=== PATIENT | female | born 1980 | race Caucasian/White ===

== ENCOUNTER 2018-07-10 18:14 | Inpatient (IN) | payer BC ==
[2018-07-10] MEDS ORDERED: Lactated Ringers 1,000 ML IV ONE (18:39)
[2018-07-10] MEDS ORDERED: Famotidine 20 MG/2 ML SDV IVPUSH ONE (18:39)
[2018-07-10] MEDS ORDERED: Ondansetron 4 MG/2 ML SDV IVPUSH ONE (18:39)
--- NOTE | 2018-07-10 18:39 | EDM.PDOC ---
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 during this hospitalization. - Problem List Review Problem List Initiated/Reviewed/Updated: Yes - My Orders Last 24 Hours: My Active Orders 07/10/18 18:39 Peripheral IV Care [RC] . DIRECTED Abdomen Series w Chest 1V [CR] Stat H PYLORI STOOL ANTIGEN [MREF] Urgent Sodium Chloride 0.9% [Saline Flush] 10 ml FLUSH ASDIRECTED PRN Obtain Past Medical Record [OM.PC] Urgent Peripheral IV Insertion Adult [OM.PC] Stat Resuscitation Status Stat 07/10/18 19:32 Blood Culture x2 Reflex Set [OM.PC] Urgent 07/10/18 19:40 CULTURE BLOOD [BC] Stat 07/10/18 19:47 CULTURE BLOOD [BC] Stat 07/10/18 Breakfast Nothing Per Oral Diet [DIET] - Assessment/Plan Admission H&P: Please use this note as an admission H&P Last 24 Hours: My Active Orders 07/10/18 18:39 Peripheral IV Care [RC] . DIRECTED Abdomen Series w Chest 1V [CR] Stat H PYLORI STOOL ANTIGEN [MREF] Urgent Sodium Chloride 0.9% [Saline Flush] 10 ml FLUSH ASDIRECTED PRN Obtain Past Medical Record [OM.PC] Urgent Peripheral IV Insertion Adult [OM.PC] Stat Resuscitation Status Stat 07/10/18 19:32 Blood Culture x2 Reflex Set [OM.PC] Urgent 07/10/18 19:40 CULTURE BLOOD [BC] Stat 07/10/18 19:47 CULTURE BLOOD [BC] Stat 07/10/18 Breakfast Nothing Per Oral Diet [DIET] Assessment:: As above Plan: As above. Extensive precautions were given to the patient, who is in agreement with the treatment plan. The patient will require about 3-4 days of inpatient/ acute care secondary to multiple health problems as above.
[2018-07-10] MEDS ORDERED: cefTRIAXone 1 GM in Sodium Chloride 0.9% 100 ML IV ONE (18:43)
[2018-07-10] MEDS: Sodium Chloride 0.9% 10 ML Syringe FLUSH PRN ×3 (19:01→23:38)
[2018-07-10 19:27] LABS: CHLORIDE,CL 104 mmol/L (98-107); SODIUM,NA 139 mmol/L (136-145)
[2018-07-10] MEDS ORDERED: Ketorolac 30 MG/ML SDV IVPUSH ONE (20:46)
[2018-07-10] MEDS: Lactated Ringers 1,000 ML IV SCH (21:29)
[2018-07-10] MEDS: HYDROmorphone 1 MG/ML Syringe IVPUSH PRN (22:23)
[2018-07-10] MEDS: Ondansetron 4 MG/2 ML SDV IVPUSH PRN (23:38)
[2018-07-10] MEDS: Temazepam 15 MG Cap PO PRN (23:46)
[2018-07-10] MEDS: Acetaminophen 325 MG Tab PO PRN (23:46)
[2018-07-11] MEDS: traMADol 50 MG Tab PO PRN ×3 (01:53→22:16)
[2018-07-11] MEDS: Sodium Chloride 0.9% 10 ML Syringe FLUSH PRN ×12 (03:27→22:23)
[2018-07-11] MEDS: Ketorolac 15 MG/ML SDV IVPUSH SCH ×4 (03:28→20:09)
[2018-07-11] MEDS: HYDROmorphone 1 MG/ML Syringe IVPUSH PRN ×3 (04:55→17:51)
[2018-07-11] MEDS: cefTRIAXone 1 GM in Sodium Chloride 0.9% 100 ML IV SCH ×2 (07:29→19:21)
[2018-07-11] MEDS: Sodium Chloride 0.9% 10 ML Syringe FLUSH SCH ×2 (07:29→19:27)
[2018-07-11] MEDS: Gabapentin 300 MG Cap PO SCH ×3 (07:35→17:10)
[2018-07-11] MEDS: Lactated Ringers 1,000 ML IV SCH ×2 (08:09→22:15)
[2018-07-11 08:20] LABS: CHLORIDE,CL 105 mmol/L (98-107); SODIUM,NA 140 mmol/L (136-145)
[2018-07-11] MEDS: Ondansetron 4 MG/2 ML SDV IVPUSH PRN ×2 (08:50→14:50)
[2018-07-11] MEDS ORDERED: Iopamidol 612 MG/ML 100 ML Bottle IVPUSH ONE (09:06)
--- NOTE | 2018-07-11 10:19 | PCM.PN ---
- General Info Date of Service: 07/11/18 Admission Dx/Problem (Free Text): Dental abscess Subjective Update: Increased right facial swelling since admission Functional Status: Reports: Pain Controlled, Tolerating Diet, Ambulating, Urinating, New Symptoms (Increased right facial swelling as above). Denies: Incentive Spirometry Pain Score: 5 - Review of Systems General: Reports: Fever (Low-grade fever yesterday evening however afebrile this morning), Chills. Denies: Weakness, Fatigue, Malaise, Night Sweats, Appetite (Adequate) HEENT: Reports: Glasses, Other (Right facial swelling as above). Denies: Ear Pain, Eye Pain, Headaches, Post Nasal Drip, Sinus Congestion, Sore Throat, Rhinitis, Visual Changes Pulmonary: Reports: No Symptoms. Denies: Shortness of Breath, Pleuritic Chest Pain, Cough, Sputum, Hemoptysis, Wheezing Cardiovascular: Reports: No Symptoms. Denies: Chest Pain, Palpitations, Dyspnea on Exertion, Orthopnea, Edema, Lightheadedness Gastrointestinal: Reports: No Symptoms. Denies: Abdominal Pain, Constipation, Decreased Appetite, Diarrhea, Difficulty Swallowing, Flatus, Hematochezia, Melena, Nausea, Vomiting Genitourinary: Reports: No Symptoms. Denies: Dysuria, Frequency, Burning, Pain , Urgency, Incontinence, Hematuria, Retention, Flank Pain Musculoskeletal: Reports: No Symptoms. Denies: Neck Pain, Shoulder Pain, Arm Pain, Back Pain, Leg Pain Skin: Reports: Other (Right facial swelling as above). Denies: Diaphoresis, Bruising, Rash Neurological: Reports: No Symptoms. Denies: Confusion, Dizziness, Headache, Numbness, Paresthesia, Tingling, Weakness, Change in Speech Psychiatric: Reports: No Symptoms. Denies: Confusion, Depression, Anxiety, Agitation, Cravings, Hallucinations - Patient Data Vitals - Most Recent: Last Vital Signs Temp 36.6 C 07/11/18 07:54 Pulse 55 L 07/11/18 07:54 Resp 20 07/11/18 07:54 BP 158/91 H 07/11/18 07:54 Pulse Ox 92 L 07/11/18 07:54 Vital Signs - 24 hr 07/10/18 07/10/18 07/11/18 18:15 18:55 00:00 Temperature [ 37.2 C 37.1 C Temporal] Pulse, 62 70 55 L Peripheral [ Left Pulse Oximetry] Respiratory 20 16 16 Rate Blood Pressure 161/80 H 157/83 H [Left Upper Arm ] Blood Pressure 139/77 [Right Upper Arm] O2 Sat by Pulse 96 97 94 L Oximetry 07/11/18 07/11/18 03:40 07:54 Temperature [ 37.0 C 36.6 C Temporal] Pulse, 52 L 55 L Peripheral [ Left Pulse Oximetry] Respiratory 20 20 Rate Blood Pressure 158/91 H [Left Upper Arm ] Blood Pressure 173/87 H [Right Upper Arm] O2 Sat by Pulse 94 L 92 L Oximetry Weight - Most Recent: 98.112 kg I&O - Last 24 Hours: Intake & Output 07/10/18 07/11/18 07/11/18 22:59 06:59 14:59 Intake Total 1600 1 Output Total 1000 1000 Balance 600 1021 Imaging Impressions - Last 24 Hours: Telephone consultation at 10:04 AM this morning with the radiology department at [facility] with preliminary verbal report of CT scan of the maxillofacial region and soft tissue of the neck both with IV contrast. Soft tissue swelling and inflammation noted in the right facial region, however no direct significant abscess or involvement of the neck region. Note concomitant right-sided sinusitis. Secondary to repaired dental caries some artifact noted with probable dental abscess not visible Lab Results Last 24 Hours: Laboratory Results - last 24 hr 07/10/18 07/10/18 07/10/18 Range/Units 18:55 18:55 18:55 WBC 20.7 H (4.0-10.2) K/uL RBC 4.95 (3.77-5.09) M/uL Hgb 15.0 (11.7-15.5) g/dL Hct 43.6 (34.0-46.0) % MCV 88.1 (84.0-98.0) fL MCH 30.3 (28.2-33.3) pg MCHC 34.4 (31.7-36.0) g/dL RDW 13.7 (11.2-14.1) % Plt Count 328 (150-350) K/uL Neut % (Auto) 79.5 (45.0-80.0) % Lymph % (Auto) 13.2 (10.0-50.0) % [place] % (Auto) 6.6 (2.0-14.0) % Eos % (Auto) 0.5 (0.0-5.0) % Baso % (Auto) 0.2 (0.0-2.0) % Neut # (Auto) 16.47 H (1.40-7.00) K/uL Lymph # (Auto) 2.73 (0.50-3.50) K/uL [place] # (Auto) 1.36 H (0.00-1.00) K/uL Eos # (Auto) 0.10 (0.00-0.50) K/uL Baso # (Auto) 0.04 (0.00-0.20) K/uL PT 10.6 (9.8-11.7) SEC INR 1.0 APTT 30.3 H (22.1-29.8) SEC Sodium (136-145) mmol/L Potassium (3.5-5.1) mmol/L Chloride (98-107) mmol/L Carbon Dioxide (21.0-32.0) mmol/L BUN (7-18) mg/dL Creatinine (0.51-1.17) mg/dL Est Cr Clr Drug Dosing mL/min Estimated GFR (MDRD) mL/min Glucose (74-106) mg/dL Lactic Acid (0.4-2.0) mmol/L Uric Acid (2.6-7.2) mg/dL Calcium (8.5-10.1) mg/dL Magnesium (1.8-2.4) mg/dL Total Bilirubin (0.2-1.0) mg/dL AST (15-37) U/L ALT (12-78) U/L Alkaline Phosphatase (46-116) IU/L Total Protein (6.4-8.2) g/dL Albumin (3.4-5.0) g/dL Amylase 44 (25-115) U/L Lipase (73-393) U/L TSH, Ultra Sensitive (0.358-3.740) mIU/mL HCG, Qual (NEGATIVE) Specimen Type Urine Color Urine Appearance Urine pH (5.0-9.0) Ur Specific [place] (1.005-1.030) Urine Protein (NEGATIVE) mg/dL Urine Glucose (UA) (NEGATIVE) mg/dL Urine Ketones (NEGATIVE) mg/dL Urine Occult Blood (NEGATIVE) Urine Nitrite (NEGATIVE) Urine Bilirubin (NEGATIVE) Urine Urobilinogen (0.2-1.0) E.U./dL Ur Leukocyte Esterase (NEGATIVE) Urine RBC /HPF Urine WBC /HPF Ur Epithelial Cells /LPF Urine Bacteria (NONE TO FEW) /HPF 07/10/18 07/10/18 07/10/18 Range/Units 18:55 18:55 18:55 WBC (4.0-10.2) K/uL RBC (3.77-5.09) M/uL Hgb (11.7-15.5) g/dL Hct (34.0-46.0) % MCV (84.0-98.0) fL MCH (28.2-33.3) pg MCHC (31.7-36.0) g/dL RDW (11.2-14.1) % Plt Count (150-350) K/uL Neut % (Auto) (45.0-80.0) % Lymph % (Auto) (10.0-50.0) % [place] % (Auto) (2.0-14.0) % Eos % (Auto) (0.0-5.0) % Baso % (Auto) (0.0-2.0) % Neut # (Auto) (1.40-7.00) K/uL Lymph # (Auto) (0.50-3.50) K/uL [place] # (Auto) (0.00-1.00) K/uL Eos # (Auto) (0.00-0.50) K/uL Baso # (Auto) (0.00-0.20) K/uL PT (9.8-11.7) SEC INR APTT (22.1-29.8) SEC Sodium 139 (136-145) mmol/L Potassium 3.2 L (3.5-5.1) mmol/L Chloride 104 (98-107) mmol/L Carbon Dioxide 24.4 (21.0-32.0) mmol/L BUN 5 L (7-18) mg/dL Creatinine 0.57 (0.51-1.17) mg/dL Est Cr Clr Drug Dosing 96.12 mL/min Estimated GFR (MDRD) > 60 mL/min Glucose 104 (74-106) mg/dL Lactic Acid 0.9 (0.4-2.0) mmol/L Uric Acid 3.0 (2.6-7.2) mg/dL Calcium 9.0 (8.5-10.1) mg/dL Magnesium 1.9 (1.8-2.4) mg/dL Total Bilirubin 0.5 (0.2-1.0) mg/dL AST 17 (15-37) U/L ALT 29 (12-78) U/L Alkaline Phosphatase 71 (46-116) IU/L Total Protein 8.1 (6.4-8.2) g/dL Albumin 4.3 (3.4-5.0) g/dL Amylase (25-115) U/L Lipase 63 L (73-393) U/L TSH, Ultra Sensitive (0.358-3.740) mIU/mL HCG, Qual Negative (NEGATIVE) Specimen Type Urine Color Urine Appearance Urine pH (5.0-9.0) Ur Specific [place] (1.005-1.030) Urine Protein (NEGATIVE) mg/dL Urine Glucose (UA) (NEGATIVE) mg/dL Urine Ketones (NEGATIVE) mg/dL Urine Occult Blood (NEGATIVE) Urine Nitrite (NEGATIVE) Urine Bilirubin (NEGATIVE) Urine Urobilinogen (0.2-1.0) E.U./dL Ur Leukocyte Esterase (NEGATIVE) Urine RBC /HPF Urine WBC /HPF Ur Epithelial Cells /LPF Urine Bacteria (NONE TO FEW) /HPF 07/10/18 07/10/18 07/11/18 Range/Units 18:55 20:44 07:30 WBC 17.7 H (4.0-10.2) K/uL RBC 4.56 (3.77-5.09) M/uL Hgb 13.8 (11.7-15.5) g/dL Hct 41.1 (34.0-46.0) % MCV 90.1 (84.0-98.0) fL MCH 30.3 (28.2-33.3) pg MCHC 33.6 (31.7-36.0) g/dL RDW 13.9 (11.2-14.1) % Plt Count 299 (150-350) K/uL Neut % (Auto) 74.1 (45.0-80.0) % Lymph % (Auto) 16.1 (10.0-50.0) % [place] % (Auto) 8.0 (2.0-14.0) % Eos % (Auto) 1.6 (0.0-5.0) % Baso % (Auto) 0.2 (0.0-2.0) % Neut # (Auto) 13.14 H (1.40-7.00) K/uL Lymph # (Auto) 2.85 (0.50-3.50) K/uL [place] # (Auto) 1.41 H (0.00-1.00) K/uL Eos # (Auto) 0.28 (0.00-0.50) K/uL Baso # (Auto) 0.03 (0.00-0.20) K/uL PT (9.8-11.7) SEC INR APTT (22.1-29.8) SEC Sodium (136-145) mmol/L Potassium (3.5-5.1) mmol/L Chloride (98-107) mmol/L Carbon Dioxide (21.0-32.0) mmol/L BUN (7-18) mg/dL Creatinine (0.51-1.17) mg/dL Est Cr Clr Drug Dosing mL/min Estimated GFR (MDRD) mL/min Glucose (74-106) mg/dL Lactic Acid (0.4-2.0) mmol/L Uric Acid (2.6-7.2) mg/dL Calcium (8.5-10.1) mg/dL Magnesium (1.8-2.4) mg/dL Total Bilirubin (0.2-1.0) mg/dL AST (15-37) U/L ALT (12-78) U/L Alkaline Phosphatase (46-116) IU/L Total Protein (6.4-8.2) g/dL Albumin (3.4-5.0) g/dL Amylase (25-115) U/L Lipase (73-393) U/L TSH, Ultra Sensitive 0.544 (0.358-3.740) mIU/mL HCG, Qual (NEGATIVE) Specimen Type Urincc Urine Color Yellow Urine Appearance Clear Urine pH 5.5 (5.0-9.0) Ur Specific [place] 1.015 (1.005-1.030) Urine Protein Negative (NEGATIVE) mg/dL Urine Glucose (UA) Negative (NEGATIVE) mg/dL Urine Ketones 40 H (NEGATIVE) mg/dL Urine Occult Blood Trace-lysed H (NEGATIVE) Urine Nitrite Negative (NEGATIVE) Urine Bilirubin Negative (NEGATIVE) Urine Urobilinogen 0.2 (0.2-1.0) E.U./dL Ur Leukocyte Esterase Negative (NEGATIVE) Urine RBC 0-5 /HPF Urine WBC Not seen /HPF Ur Epithelial Cells Rare /LPF Urine Bacteria Not seen (NONE TO FEW) /HPF 07/11/18 Range/Units 07:30 WBC (4.0-10.2) K/uL RBC (3.77-5.09) M/uL Hgb (11.7-15.5) g/dL Hct (34.0-46.0) % MCV (84.0-98.0) fL MCH (28.2-33.3) pg MCHC (31.7-36.0) g/dL RDW (11.2-14.1) % Plt Count (150-350) K/uL Neut % (Auto) (45.0-80.0) % Lymph % (Auto) (10.0-50.0) % [place] % (Auto) (2.0-14.0) % Eos % (Auto) (0.0-5.0) % Baso % (Auto) (0.0-2.0) % Neut # (Auto) (1.40-7.00) K/uL Lymph # (Auto) (0.50-3.50) K/uL [place] # (Auto) (0.00-1.00) K/uL Eos # (Auto) (0.00-0.50) K/uL Baso # (Auto) (0.00-0.20) K/uL PT (9.8-11.7) SEC INR APTT (22.1-29.8) SEC Sodium 140 (136-145) mmol/L Potassium 3.5 (3.5-5.1) mmol/L Chloride 105 (98-107) mmol/L Carbon Dioxide 26.8 (21.0-32.0) mmol/L BUN 3 L (7-18) mg/dL Creatinine 0.58 (0.51-1.17) mg/dL Est Cr Clr Drug Dosing 94.46 mL/min Estimated GFR (MDRD) > 60 mL/min Glucose 125 H (74-106) mg/dL Lactic Acid (0.4-2.0) mmol/L Uric Acid (2.6-7.2) mg/dL Calcium 8.4 L (8.5-10.1) mg/dL Magnesium (1.8-2.4) mg/dL Total Bilirubin 0.5 (0.2-1.0) mg/dL AST 15 (15-37) U/L ALT 22 (12-78) U/L Alkaline Phosphatase 60 (46-116) IU/L Total Protein 6.8 (6.4-8.2) g/dL Albumin 3.5 (3.4-5.0) g/dL Amylase (25-115) U/L Lipase (73-393) U/L TSH, Ultra Sensitive (0.358-3.740) mIU/mL HCG, Qual (NEGATIVE) Specimen Type Urine Color Urine Appearance Urine pH (5.0-9.0) Ur Specific [place] (1.005-1.030) Urine Protein (NEGATIVE) mg/dL Urine Glucose (UA) (NEGATIVE) mg/dL Urine Ketones (NEGATIVE) mg/dL Urine Occult Blood (NEGATIVE) Urine Nitrite (NEGATIVE) Urine Bilirubin (NEGATIVE) Urine Urobilinogen (0.2-1.0) E.U./dL Ur Leukocyte Esterase (NEGATIVE) Urine RBC /HPF Urine WBC /HPF Ur Epithelial Cells /LPF Urine Bacteria (NONE TO FEW) /HPF Garth Results Last 24 Hours: Blood cultures 2 pending Med Orders - Current: Current Medications Acetaminophen (Tylenol) 650 mg PO Q4H PRN PRN Reason: Pain Last Admin: 07/10/18 23:46 Dose: 650 mg Gabapentin (Neurontin) 300 mg PO TID SUNNI Last Admin: 07/11/18 07:35 Dose: 300 mg Hydromorphone HCl (Dilaudid) 1 mg IVPUSH Q6H PRN PRN Reason: Pain (severe 7-10) Last Admin: 07/11/18 04:55 Dose: 1 mg Ceftriaxone Sodium 1 gm/ (Sodium Chloride) 100 mls @ 200 mls/hr IV Q12H SUNNI Last Admin: 07/11/18 07:29 Dose: 200 mls/hr Lactated Ringer's (Ringers, Lactated) 1,000 mls @ 100 mls/hr IV ASDIRECTED PENDING SALE TO [facility] Last Admin: 07/11/18 08:09 Dose: 100 mls/hr Vancomycin HCl 1 gm/ Sodium (Chloride) 250 mls @ 165 mls/hr IV Q12H PENDING SALE TO [facility] Last Admin: 07/11/18 10:09 Dose: 165 mls/hr Ketorolac Tromethamine (Toradol) 15 mg IVPUSH Q6H PENDING SALE TO [facility] Last Admin: 07/11/18 08:50 Dose: 15 mg Ondansetron HCl (Zofran) 4 mg IVPUSH Q6H PRN PRN Reason: Nausea/Vomiting Last Admin: 07/11/18 08:50 Dose: 4 mg Pantoprazole Sodium (Protonix Iv) 40 mg IVPUSH Q12H PENDING SALE TO [facility] Sodium Chloride (Saline Flush) 10 ml FLUSH ASDIRECTED PRN PRN Reason: Keep Vein Open Last Admin: 07/11/18 10:09 Dose: 10 ml Sodium Chloride (Saline Flush) 10 ml FLUSH Q12HR PENDING SALE TO [facility] Last Admin: 07/11/18 07:29 Dose: 10 ml Temazepam (Restoril) 15 mg PO DAILY@2000 PRN PRN Reason: Insomnia Last Admin: 07/10/18 23:46 Dose: 15 mg Tramadol HCl (Ultram) 50 mg PO Q6H PRN PRN Reason: Pain (moderate 4-6) Last Admin: 07/11/18 01:53 Dose: 50 mg Discontinued Medications Famotidine (Pepcid) 40 mg IVPUSH ONETIME ONE Stop: 07/10/18 18:40 Last Admin: 07/10/18 18:58 Dose: 40 mg Lactated Ringer's (Ringers, Lactated) 1,000 mls @ 999 mls/hr IV .BOLUS ONE Stop: 07/10/18 19:39 Last Admin: 07/10/18 19:38 Dose: 999 mls/hr Ceftriaxone Sodium 1 gm/ (Sodium Chloride) 100 mls @ 200 mls/hr IV ONETIME ONE Stop: 07/10/18 19:12 Last Admin: 07/10/18 19:00 Dose: 200 mls/hr Iopamidol (Isovue-300 (61%)) 100 ml IVPUSH ONETIME ONE Stop: 07/11/18 09:07 Last Admin: 07/11/18 09:24 Dose: 100 ml Ketorolac Tromethamine (Toradol) 30 mg IVPUSH ONETIME ONE Stop: 07/10/18 20:47 Last Admin: 07/10/18 21:23 Dose: 30 mg Ondansetron HCl (Zofran) 4 mg IVPUSH ONETIME ONE Stop: 07/10/18 18:40 Last Admin: 07/10/18 18:56 Dose: 4 mg - Exam Quality Assessment: DVT Prophylaxis. No: Supplemental Oxygen, Central Line/PICC , Urine Catheter, Skin Breakdown, Restraints General: Alert, Oriented, Cooperative, No Acute Distress HEENT: Pupils Equal, Pupils Reactive, EOMI, Mucous Membr. Moist/[place], Other ( Patient wearing glasses. Severe right facial swelling with localized moderate tenderness. Stable right upper premolar gingiva swelling with no discharge.) Neck: Supple, Trachea Midline, No JVD, No Thyromegaly. No: Lymphadenopathy, Thyromegaly Lungs: Clear to Auscultation, Normal Respiratory Effort. No: Rub Cardiovascular: Regular Rate, Regular Rhythm, No Murmurs. No: Gallops, Rubs GI/Abdominal Exam: Normal Bowel Sounds, Soft, Non-Tender, No Organomegaly, No Distention, No Abnormal Bruit, No Mass, Other (Obese). No: Guarding (Female) Exam: Deferred Back Exam: Normal Inspection, Full Range of Motion. No: CVA Tenderness (L), CVA Tenderness (R), Muscle Spasm Extremities: Normal Inspection, Normal Range of Motion, Non-Tender, No Pedal Edema, Normal Capillary Refill. No: Vlad's Sign Peripheral Pulses: 2+: Radial (L), Radial (R), Dorsalis Pedis (L), Dorsalis Pedis (R) Skin: Other (Right facial swelling as above). No: Rash, Ecchymosis Neurological: No New Focal Deficit Psy/Mental Status: Alert, Normal Affect, Normal Mood. No: Agitated, Hallucinations, Withdrawal Symptoms - Problem List & Annotations (1) Dental abscess SNOMED Code(s): 383552807 Code(s): K04.7 - PERIAPICAL ABSCESS WITHOUT SINUS Status: Acute Priority : High Current Visit: Yes Onset Date: ~07/07/18 Annotation/Comment:: Note progressive facial swelling since admission with stat CT scan conducted of the maxillofacial and soft tissue neck regions on 07/11 with preliminary results as above. Continue current aggressive IV Rocephin therapy with additional aggressive IV vancomycin ordered this morning prior to conduction of CT scans. Leukocytosis has improved somewhat since admission with no direct evidence of sepsis. Lactic acid level, etc. will be repeated in the morning. Various therapeutic options were discussed with the patient, including hospital transfer to [place], with the patient to continue hospital care in this facility with aggressive treatment as above. Continue current aggressive pain management with IV Toradol, oral Tylenol, oral Ultram, and IV Dilaudid with occasional breakthrough pain of 07/02. Consider oral surgeon/dental consultation and/or hospital transfer in the a.m. depending on her clinical response to the above therapy. [facility] physician assumes care in the a.m. Note CBC results prior to admission were obtained after IV Rocephin had been administrated with blood cultures 2 collected thereafter, which can compromise these test results. (2) Nausea and vomiting SNOMED Code(s): 85037846 Code(s): R11.2 - NAUSEA WITH VOMITING, UNSPECIFIED Status: Acute Priority : High Current Visit: Yes Onset Date: 07/10/18 Qualifiers: Vomiting type: cyclical vomiting Vomiting Intractability: non-intractable Qualified Code(s): G43.A0 - Cyclical vomiting, not intractable Annotation/Comment:: No significant nausea despite aggressive pain control as above. Overall good response to IV Zofran in the emergency room. Aggravation of probable mild viral GE secondary to her recent narcotics. Abdominal assessments with vitals have been normal. (3) Hypermenorrhea SNOMED Code(s): 222944816 Code(s): N92.0 - EXCESSIVE AND FREQUENT MENSTRUATION WITH REGULAR CYCLE Status: Chronic Priority: Medium Current Visit: Yes Qualifiers: Menorrahagia type: with irregular cycle Qualified Code(s): N92.1 - Excessive and frequent menstruation with irregular cycle Annotation/Comment:: TSH normal. Continue to observe closely by her regular provider. (4) Mixed anxiety depressive disorder SNOMED Code(s): 954133641 Code(s): F41.8 - OTHER SPECIFIED ANXIETY DISORDERS Status: Chronic Priority: Medium Current Visit: Yes Annotation/Comment:: Stable during this hospitalization and by patient history (5) Obesity (BMI 35.0-39.9 without comorbidity) SNOMED Code(s): 085513804, 615297136 Code(s): E66.9 - OBESITY, UNSPECIFIED Status: Chronic Priority: Medium Current Visit: Yes Annotation/Comment:: Low-fat, low-cholesterol diet to be provided at discharge (6) Tobacco abuse counseling SNOMED Code(s): 499494016, 555169033, 795578863 Code(s): Z71.6 - TOBACCO ABUSE COUNSELING Status: Chronic Priority: Medium Current Visit: Yes Annotation/Comment:: Tobacco cessation information to be provided at discharge. (7) COPD (chronic obstructive pulmonary disease) SNOMED Code(s): 52388853 Code(s): J44.9 - CHRONIC OBSTRUCTIVE PULMONARY DISEASE, UNSPECIFIED Status : Chronic Priority: Medium Current Visit: Yes Qualifiers: COPD type: emphysema Annotation/Comment:: No recent bronchitic type symptoms. Consider PFTs on an outpatient basis. (8) Hypokalemia SNOMED Code(s): 29514629 Code(s): E87.6 - HYPOKALEMIA Status: Acute Priority: Medium Current Visit: Yes Onset Date: 07/10/18 Annotation/Comment:: Hypokalemia likely secondary to emesis prior to admission with normal potassium level today. IV lactated Ringer's IV bolus initiated in the emergency room with continuation of aggressive IV fluids during this hospitalization. - Problem List Review Problem List Initiated/Reviewed/Updated: Yes - My Orders Last 24 Hours: My Active Orders 07/10/18 18:39 Peripheral IV Care [RC] . DIRECTED Abdomen Series w Chest 1V [CR] Stat H PYLORI STOOL ANTIGEN [MREF] Urgent Sodium Chloride 0.9% [Saline Flush] 10 ml FLUSH ASDIRECTED PRN Peripheral IV Insertion Adult [OM.PC] Stat Resuscitation Status Stat 07/10/18 19:32 Blood Culture x2 Reflex Set [OM.PC] Urgent 07/10/18 19:40 CULTURE BLOOD [BC] Stat 07/10/18 19:47 CULTURE BLOOD [BC] Stat 07/10/18 20:00 Temazepam [Restoril] 15 mg PO DAILY@1999 PRN 07/10/18 20:43 Acetaminophen [Tylenol] 650 mg PO Q4H PRN Ondansetron [Zofran] 4 mg IVPUSH Q6H PRN 07/10/18 20:44 Communication Order [RC] DAILY Communication Order [RC] Q4HR Height and Weight [RC] DAILY Intake and Output Strict [RC] 06,14, Oxygen Therapy [RC] .PRN Pulse Oximetry [RC] .PRN Up With Assistance [RC] .PRN Vital Signs [RC] Q4HR CULTURE URINE [RM] Routine OCCULT BLOOD DIAGNOSTIC [OP] Routine UA W/MICROSCOPIC [URIN] Routine GM Immunization Reflex [OM.PC] Click To Edit 07/10/18 20:46 Cardiac Monitoring [RC] Q2HR traMADol [Ultram] 50 mg PO Q6H PRN 07/10/18 20:47 HYDROmorphone [Dilaudid] 1 mg IVPUSH Q6H PRN 07/10/18 21:00 Lactated Ringers [Ringers, Lactated] 1,000 ml IV ASDIRECTED 07/10/18 Dinner [place] Diet [DIET] 07/11/18 03:00 Ketorolac [Toradol] 15 mg IVPUSH Q6H 07/11/18 07:00 cefTRIAXone [Rocephin] 1 gm Sodium Chloride 0.9% [Normal Saline] 100 ml IV Q12H 07/11/18 08:00 Gabapentin [Neurontin] 300 mg PO TID Sodium Chloride 0.9% [Saline Flush] 10 ml FLUSH Q12HR 07/11/18 09:00 Soft Tissue Neck w Cont [CT] Stat 07/11/18 10:00 Vancomycin 1 gm Sodium Chloride 0.9% [Normal Saline] 250 ml IV Q12H 07/11/18 21:00 Pantoprazole [ProTONIX IV] 40 mg IVPUSH Q12H - Assessment Assessment:: As above - Plan Plan:: As above. Extensive precautions were given to the patient, who is in agreement with the treatment plan. Aggressive IV antibody therapy required as above with anticipated further inpatient hospitalization for about 2-3 days and/or previous transfer to [place] as above.
[2018-07-11] MEDS: Acetaminophen 325 MG Tab PO PRN ×2 (14:40→22:15)
[2018-07-11] MEDS: Docusate Sodium 100 MG Cap PO SCH (19:21)
[2018-07-11] MEDS: Pantoprazole 40 MG Vial IVPUSH SCH (20:09)
[2018-07-11] MEDS: Temazepam 15 MG Cap PO PRN (22:15)
[2018-07-12] MEDS: HYDROmorphone 1 MG/ML Syringe IVPUSH PRN ×2 (00:20→06:38)
[2018-07-12] MEDS: Ketorolac 15 MG/ML SDV IVPUSH SCH ×3 (03:03→14:54)
[2018-07-12] MEDS: Sodium Chloride 0.9% 10 ML Syringe FLUSH PRN ×7 (03:03→14:53)
[2018-07-12] MEDS: Sodium Chloride 0.9% 10 ML Syringe FLUSH SCH (07:38)
[2018-07-12] MEDS: Docusate Sodium 100 MG Cap PO SCH (07:38)
[2018-07-12] MEDS: Gabapentin 300 MG Cap PO SCH ×2 (07:38→11:07)
[2018-07-12] MEDS: cefTRIAXone 1 GM in Sodium Chloride 0.9% 100 ML IV SCH (07:38)
[2018-07-12] MEDS: Pantoprazole 40 MG Vial IVPUSH SCH (08:09)
[2018-07-12] MEDS: Ondansetron 4 MG/2 ML SDV IVPUSH PRN (08:18)
[2018-07-12 08:36] LABS: CHLORIDE,CL 106 mmol/L (98-107); SODIUM,NA 141 mmol/L (136-145)
[2018-07-12 10:52] VITALS: BP 127/71
[2018-07-12] MEDS: traMADol 50 MG Tab PO PRN (11:12)
[2018-07-12] MEDS: Acetaminophen 325 MG Tab PO PRN (11:12)
[2018-07-12] MEDS ORDERED: HYDROmorphone 1 MG/ML Syringe IVPUSH ONE (14:37)
--- NOTE | 2018-07-12 15:19 | PCM.DCSUM1 ---
Discharge Summary - Hospital Course Brief History: Patient admitted for treatment of presumed dental infection Diagnosis: Stroke: No - Discharge Data Discharge Date: 07/12/18 Discharge Disposition: DC/Tfer to Acute Hospital 02 Condition: Good - Discharge Diagnosis/Problem(s) (1) Dental abscess SNOMED Code(s): 994885135 ICD Code: K04.7 - PERIAPICAL ABSCESS WITHOUT SINUS Status: Acute Priority : High Current Visit: Yes Onset Date: ~07/07/18 Problem Details: Dental abscess noted on CT review by SANJEEV Ann at [facility]. To be transferred to [facility] in [place] for definitive treatment of abscess. Accepted by Dr Banuelos/ hospitalist. Received Vanco as well as Rocephin for treatment of infection. CT study sent to [facility] today to be reviewed by , on-staff DDS. He felt that there was an abscess present that was not noted by initial Radiology review and that this will require surgical drainage. (2) Hypokalemia SNOMED Code(s): 76079320 ICD Code: E87.6 - HYPOKALEMIA Status: Acute Priority: Medium Current Visit: Yes Onset Date: 07/10/18 Problem Details: Hypokalemia likely secondary to emesis prior to admission with normal potassium level today. (3) Nausea and vomiting SNOMED Code(s): 32221576 ICD Code: R11.2 - NAUSEA WITH VOMITING, UNSPECIFIED Status: Acute Priority: High Current Visit: Yes Onset Date: 07/10/18 Problem Details: Improved Qualifiers: Vomiting type: cyclical vomiting Vomiting Intractability: non-intractable Qualified Code(s): G43.A0 - Cyclical vomiting, not intractable (4) COPD (chronic obstructive pulmonary disease) SNOMED Code(s): 94781592 ICD Code: J44.9 - CHRONIC OBSTRUCTIVE PULMONARY DISEASE, UNSPECIFIED Status : Chronic Priority: Medium Current Visit: Yes Problem Details: No recent bronchitic type symptoms. Consider PFTs on an outpatient basis. Qualifiers: COPD type: emphysema (5) Hypermenorrhea SNOMED Code(s): 097578612 ICD Code: N92.0 - EXCESSIVE AND FREQUENT MENSTRUATION WITH REGULAR CYCLE Status: Chronic Priority: Medium Current Visit: Yes Problem Details: TSH normal. Continue to observe closely by her regular provider. Qualifiers: Menorrahagia type: with irregular cycle Qualified Code(s): N92.1 - Excessive and frequent menstruation with irregular cycle (6) Mixed anxiety depressive disorder SNOMED Code(s): 500513954 ICD Code: F41.8 - OTHER SPECIFIED ANXIETY DISORDERS Status: Chronic Priority: Medium Current Visit: Yes Problem Details: Stable during this hospitalization and by patient history (7) Obesity (BMI 35.0-39.9 without comorbidity) SNOMED Code(s): 013110081, 996595824 ICD Code: E66.9 - OBESITY, UNSPECIFIED Status: Chronic Priority: Medium Current Visit: Yes (8) Tobacco abuse counseling SNOMED Code(s): 195768112, 242976107, 599109925 ICD Code: Z71.6 - TOBACCO ABUSE COUNSELING Status: Chronic Priority: Medium Current Visit: Yes - Patient Summary/Data Complications: None Consults: Call placed to SANJEEV Ann, at [facility] in [place]. He reviewed patient's CT as noted above. Hospital Course: Patient received IV Rocephin and Vancomycin with noted improvement in white count as well as mild improvement of facial swelling. Pain persisted however. Given continued swelling and pain, call placed today to [facility] and patient's case was reviewed with (as outlined above). CT study transmitted to [facility] for review and she was felt to have changes suggesting abscess that will require surgical drainage. Arrangements were made to transfer patient's care to [facility], with , hospitalist, as accepting MD. Patient wished to be transferred by private vehicle and was given a ride by her . She was placed NPO once need for transfer and surgical drainage was determined. - Discharge Plan *PRESCRIPTION DRUG MONITORING PROGRAM REVIEWED*: Not Applicable *COPY OF PRESCRIPTION DRUG MONITORING REPORT IN PATIENT DANDRE: Not Applicable Home Medications: Home Meds Gabapentin [Neurontin] 300 mg PO TID 01/04/16 [History] Ibuprofen 600 mg PO DAILY PRN 01/04/16 [History] Amoxicillin/Clavulanate K [Augmentin 875-125 MG] 1 tab PO BID 07/10/18 [History] Forms: ED Department Discharge Referrals: Niki Davis PA-C [Primary Care Provider] - - Discharge Summary/Plan Comment DC Time >30 min.: No - General Info Date of Service: 07/12/18 Admission Dx/Problem (Free Text: Dental abscess Subjective Update: Swelling mildly improved, continues to have pain right upper teeth. Feels like her gum is more swollen in this area but denies active drainage. Functional Status: Reports: Pain Controlled (Improved with IV Toradol and Dilaudid) - Review of Systems General: Reports: Appetite (poor, hurts to eat). Denies: Fever, Weakness, Fatigue, Chills HEENT: Reports: Glasses, Other (tooth pain as above). Denies: Ear Pain, Headaches, Sinus Congestion, Sore Throat, Rhinitis, Visual Changes Pulmonary: Reports: No Symptoms Cardiovascular: Reports: No Symptoms Gastrointestinal: Reports: No Symptoms Genitourinary: Reports: No Symptoms Musculoskeletal: Denies: Neck Pain Skin: Reports: No Symptoms Neurological: Reports: No Symptoms Psychiatric: Reports: No Symptoms - Patient Data Vitals - Most Recent: Last Vital Signs Temp 37.0 C 07/12/18 10:51 Pulse 61 07/12/18 10:51 Resp 16 07/12/18 10:51 BP 127/71 07/12/18 10:51 Pulse Ox 94 L 07/12/18 10:51 Weight - Most Recent: 98.112 kg I&O - Last 24 hours: Intake & Output 07/12/18 07/12/18 07/12/18 06:59 14:59 22:59 Intake Total 193 1086 Output Total 1999 2049 Balance -67 964 Lab Results - Last 24 hrs: Laboratory Results - last 24 hr 07/12/18 07/12/18 07/12/18 Range/Units 07:25 07:25 07:25 WBC 12.7 H (4.0-10.2) K/uL RBC 3.93 (3.77-5.09) M/uL Hgb 11.8 D (11.7-15.5) g/dL Hct 35.8 (34.0-46.0) % MCV 91.1 (84.0-98.0) fL MCH 30.0 (28.2-33.3) pg MCHC 33.0 (31.7-36.0) g/dL RDW 13.8 (11.2-14.1) % Plt Count 236 (150-350) K/uL Neut % (Auto) 65.0 (45.0-80.0) % Lymph % (Auto) 22.9 (10.0-50.0) % [place] % (Auto) 9.1 (2.0-14.0) % Eos % (Auto) 2.8 (0.0-5.0) % Baso % (Auto) 0.2 (0.0-2.0) % Neut # (Auto) 8.27 H (1.40-7.00) K/uL Lymph # (Auto) 2.91 (0.50-3.50) K/uL [place] # (Auto) 1.16 H (0.00-1.00) K/uL Eos # (Auto) 0.36 (0.00-0.50) K/uL Baso # (Auto) 0.03 (0.00-0.20) K/uL Sodium 141 (136-145) mmol/L Potassium 3.5 (3.5-5.1) mmol/L Chloride 106 (98-107) mmol/L Carbon Dioxide 26.7 (21.0-32.0) mmol/L BUN 3 L (7-18) mg/dL Creatinine 0.51 (0.51-1.17) mg/dL Est Cr Clr Drug Dosing 107.43 mL/min Estimated GFR (MDRD) > 60 mL/min Glucose 109 H (74-106) mg/dL Hemoglobin A1c (4.3-5.7) % Lactic Acid 0.6 (0.4-2.0) mmol/L Calcium 8.3 L (8.5-10.1) mg/dL Total Bilirubin 0.3 (0.2-1.0) mg/dL AST 18 (15-37) U/L ALT 27 (12-78) U/L Alkaline Phosphatase 49 (46-116) IU/L Total Protein 6.2 L (6.4-8.2) g/dL Albumin 3.0 L (3.4-5.0) g/dL 07/12/18 Range/Units 07:25 WBC (4.0-10.2) K/uL RBC (3.77-5.09) M/uL Hgb (11.7-15.5) g/dL Hct (34.0-46.0) % MCV (84.0-98.0) fL MCH (28.2-33.3) pg MCHC (31.7-36.0) g/dL RDW (11.2-14.1) % Plt Count (150-350) K/uL Neut % (Auto) (45.0-80.0) % Lymph % (Auto) (10.0-50.0) % [place] % (Auto) (2.0-14.0) % Eos % (Auto) (0.0-5.0) % Baso % (Auto) (0.0-2.0) % Neut # (Auto) (1.40-7.00) K/uL Lymph # (Auto) (0.50-3.50) K/uL [place] # (Auto) (0.00-1.00) K/uL Eos # (Auto) (0.00-0.50) K/uL Baso # (Auto) (0.00-0.20) K/uL Sodium (136-145) mmol/L Potassium (3.5-5.1) mmol/L Chloride (98-107) mmol/L Carbon Dioxide (21.0-32.0) mmol/L BUN (7-18) mg/dL Creatinine (0.51-1.17) mg/dL Est Cr Clr Drug Dosing mL/min Estimated GFR (MDRD) mL/min Glucose (74-106) mg/dL Hemoglobin A1c 5.8 H (4.3-5.7) % Lactic Acid (0.4-2.0) mmol/L Calcium (8.5-10.1) mg/dL Total Bilirubin (0.2-1.0) mg/dL AST (15-37) U/L ALT (12-78) U/L Alkaline Phosphatase (46-116) IU/L Total Protein (6.4-8.2) g/dL Albumin (3.4-5.0) g/dL AMANDA Results - Last 24 hrs: Microbiology 07/10/18 20:44 Urine Culture - Preliminary Urine, Clean Catch NO GROWTH AFTER 1 DAY 07/10/18 19:47 Aerobic Blood Culture - Preliminary Blood - Venous - Lab Draw NO GROWTH AFTER 1 DAY Anaerobic Blood Culture - Preliminary NO GROWTH AFTER 1 DAY 07/10/18 19:40 Aerobic Blood Culture - Preliminary Blood - Venous NO GROWTH AFTER 1 DAY Anaerobic Blood Culture - Preliminary NO GROWTH AFTER 1 DAY Med Orders - Current: Current Medications Acetaminophen (Tylenol) 650 mg PO Q4H PRN PRN Reason: Pain Last Admin: 07/12/18 11:12 Dose: 650 mg Docusate Sodium (Colace) 100 mg PO BID [facility] Last Admin: 07/12/18 07:38 Dose: 100 mg Gabapentin (Neurontin) 300 mg PO TID [facility] Last Admin: 07/12/18 11:07 Dose: 300 mg Ceftriaxone Sodium 1 gm/ (Sodium Chloride) 100 mls @ 200 mls/hr IV Q12H [facility] Last Admin: 07/12/18 07:38 Dose: 200 mls/hr Lactated Ringer's (Ringers, Lactated) 1,000 mls @ 100 mls/hr IV ASDIRECTED [facility] Last Admin: 07/11/18 22:15 Dose: 100 mls/hr Vancomycin HCl 1 gm/ Sodium (Chloride) 250 mls @ 165 mls/hr IV Q12H [facility] Last Admin: 07/12/18 09:21 Dose: 165 mls/hr Ketorolac Tromethamine (Toradol) 15 mg IVPUSH Q6H [facility] Stop: 07/13/18 08:00 Last Admin: 07/12/18 14:54 Dose: Not Given Ondansetron HCl (Zofran) 4 mg IVPUSH Q6H PRN PRN Reason: Nausea/Vomiting Last Admin: 07/12/18 08:18 Dose: 4 mg Pantoprazole Sodium (Protonix Iv) 40 mg IVPUSH Q12H [facility] Last Admin: 07/12/18 08:09 Dose: 40 mg Sodium Chloride (Saline Flush) 10 ml FLUSH ASDIRECTED PRN PRN Reason: Keep Vein Open Last Admin: 07/12/18 14:53 Dose: 10 ml Sodium Chloride (Saline Flush) 10 ml FLUSH Q12HR [facility] Last Admin: 07/12/18 07:38 Dose: 10 ml Temazepam (Restoril) 15 mg PO DAILY@2000 PRN PRN Reason: Insomnia Last Admin: 07/11/18 22:15 Dose: 15 mg Tramadol HCl (Ultram) 50 mg PO Q6H PRN PRN Reason: Pain (moderate 4-6) Last Admin: 07/12/18 11:12 Dose: 50 mg Vancomycin HCl (Pharmacy To Dose - Vancomycin) 1 dose .XX ASDIRECTED [facility] Discontinued Medications Famotidine (Pepcid) 40 mg IVPUSH ONETIME ONE Stop: 07/10/18 18:40 Last Admin: 07/10/18 18:58 Dose: 40 mg Hydromorphone HCl (Dilaudid) 1 mg IVPUSH Q6H PRN PRN Reason: Pain (severe 7-10) Last Admin: 07/12/18 06:38 Dose: 1 mg Hydromorphone HCl (Dilaudid) 0.5 mg IVPUSH ONETIME ONE Stop: 07/12/18 14:38 Last Admin: 07/12/18 14:53 Dose: 0.5 mg Lactated Ringer's (Ringers, Lactated) 1,000 mls @ 999 mls/hr IV .BOLUS ONE Stop: 07/10/18 19:39 Last Admin: 07/10/18 19:38 Dose: 999 mls/hr Ceftriaxone Sodium 1 gm/ (Sodium Chloride) 100 mls @ 200 mls/hr IV ONETIME ONE Stop: 07/10/18 19:12 Last Admin: 07/10/18 19:00 Dose: 200 mls/hr Iopamidol (Isovue-300 (61%)) 100 ml IVPUSH ONETIME ONE Stop: 07/11/18 09:07 Last Admin: 07/11/18 09:24 Dose: 100 ml Ketorolac Tromethamine (Toradol) 30 mg IVPUSH ONETIME ONE Stop: 07/10/18 20:47 Last Admin: 07/10/18 21:23 Dose: 30 mg Ondansetron HCl (Zofran) 4 mg IVPUSH ONETIME ONE Stop: 07/10/18 18:40 Last Admin: 07/10/18 18:56 Dose: 4 mg - Exam General: Reports: Alert, Oriented, Cooperative, No Acute Distress HEENT: Reports: Pupils Equal, Pupils Reactive, EOMI, Mucous Membr. Moist/[employer], Other (Mild gum swelling right upper gumline in area of missing molars. No drainage noted. ) Neck: Reports: Supple Lungs: Reports: Clear to Auscultation, Normal Respiratory Effort Cardiovascular: Reports: Regular Rate, Regular Rhythm GI/Abdominal Exam: Normal Bowel Sounds, Soft, Non-Tender, No Distention (Female) Exam: Deferred Rectal (Female) Exam: Deferred Back Exam: Denies: CVA Tenderness (L), CVA Tenderness (R) Extremities: Normal Capillary Refill Skin: Reports: Warm, Dry, Intact Neurological: Reports: No New Focal Deficit Psy/Mental Status: Reports: Alert, Normal Affect, Normal Mood
== END 2018-07-12 15:30 | DRG 114 ==
LOC: LL.ED 18:14 → UNDOADMIN 20:00 → LL.MS 20:00
PROVIDERS: ADMIT Family Medicine; ATTEND Family Medicine
DX: K04.7 Periapical abscess without sinus (principal); E66.9 Obesity, unspecified; Z68.35 Body mass index [BMI] 35.0-35.9, adult; F41.8 Other specified anxiety disorders; F17.210 Nicotine dependence, cigarettes, uncomplicated; J44.9 Chronic obstructive pulmonary disease, unspecified; E87.6 Hypokalemia; N92.0 Excessive and frequent menstruation with regular cycle; G62.9 Polyneuropathy, unspecified; Z79.899 Other long term (current) drug therapy; Z88.8 Allergy status to other drugs, medicaments and biological substances
CPT/HCPCS: 36415; 70491; 74022; 80053; 81001; 82150; 83036; 83605; 83690; 83735; 84443; 84550; 84703; 85025; 85610; 85730; 87040; 87086; 96365; 96375; 99285; A9270-GY; C9113; J0696; J1170; J1885; J2405; J3370; J3490; J7050; J7120; Q9967

== ENCOUNTER 2023-12-04 14:55 | Emergency (ER) | payer OTHER, BC ==
[2023-12-04] MEDS: Ondansetron 4 MG Tab.DIS PO ONE (15:30)
[2023-12-04 17:44] VITALS: BP 145/75; PULSE 69
== END 2023-12-04 17:24 | disposition home or self-care (01) ==
LOC: LL.ED 14:55
DX: S06.0X0A Concussion without loss of consciousness, initial encounter (principal); J44.9 Chronic obstructive pulmonary disease, unspecified; E66.9 Obesity, unspecified
CPT/HCPCS: 70450; 99284; A9270-GY